=== PATIENT | female | born 1960 | race Hispanic/Latino ===

== ENCOUNTER 2017-01-27 07:12 | Day surgery (SDC) | payer OTHER ==
[2016-10-30 09:59] VITALS: BMI 20.1
--- NOTE | 2017-01-27 08:44 | CP.SDSHP ---
Same Day Surgery H & P - History Proposed Procedure: COLONSCOPY Pre-Op Diagnosis: SEE NOTES - Previous Medical/Surgical History Pulmonary: Other Neuro: Backaches, Other Misc: Other Pain: 6.Severe Pain Comments: PANC. / . - Allergies Allergies: Allergies Penicillins Allergy (Intermediate, Verified 10/30/16 09:59) SWELLING "THROAT CLOSES" Tetanus Vaccines and Toxoid Allergy (Intermediate, Verified 10/30/16 09:59) SWELLING THROAT CLOSES UP. - Physical Exam General Appearance: N Vital Signs: Vital Signs 01/27/17 08:17 Temperature 97.5 F L Pulse Rate 80 Respiratory 19 Rate Blood Pressure 134/65 O2 Sat by Pulse 97 Oximetry Mental Status: Alert & Oriented x3 Neuro: WNL Heart: WNL Lungs: WNL GI: Other - {Optional Preform as Required} Breast: WNL Abdomen: Other Rectal: Other Integument: WNL : WNL Ortho: Other ENT: WNL - Impression Pt. Evaluated Today:Candidate for Anesthesia & Procedure: Yes - Date & Time Time: 08:47 Short Stay Discharge - Short Stay Discharge Admitting Diagnosis/Reason for Visit: CHANGE IN BOWEL HABIT Disposition: HOME/ ROUTINE
[2017-01-27] MEDS ORDERED: Midazolam 2 MG/2 ML VIAL ONE (08:45)
[2017-01-27] MEDS ORDERED: Propofol 10 mg/ml Inj (20 ML) ONE ×2 (08:45→08:59)
[2017-01-27] MEDS ORDERED: Pantoprazole 40 mg EC Tab PO STA (08:48)
[2017-01-27] MEDS ORDERED: Belladonna-Phenobarbital PO STA (08:48)
[2017-01-27 09:36] VITALS: TEMP 97.7
[2017-01-27 09:48] VITALS: BP 116/63; PULSE 81; RESP 12; O2SAT 98
== END 2017-01-27 09:46 | disposition home or self-care (01) ==
LOC: C.ENDO 07:12
PROVIDERS: ATTEND Specialist
DX: K58.9 Irritable bowel syndrome, unspecified (principal); K64.4 Residual hemorrhoidal skin tags; K64.8 Other hemorrhoids
CPT/HCPCS: 45380; 88305; 88313; 88342; J2250; J2704

== ENCOUNTER 2017-10-07 07:13 | Day surgery (SDC) | payer MEDICAID, OTHER ==
[2016-10-30 09:59] VITALS: BMI 20.1
[2017-10-07] MEDS ORDERED: Bupivacaine HCl 0.25% PF (10 ml) Inj ONE (07:44)
[2017-10-07] MEDS ORDERED: MethylPREDNISolone Depo 40 mg/ml Inj ONE ×2 (07:44→10:39)
[2017-10-07] MEDS ORDERED: Lidocaine Hydrochloride 5 ML INJ ONE (07:44)
[2017-10-07] MEDS ORDERED: Lactated Ringer's 1,000 ML IV ONE (08:24)
[2017-10-07] MEDS ORDERED: Propofol 10 mg/ml Inj (20 ML) ONE (08:34)
[2017-10-07 09:03] VITALS: RESP 15
--- NOTE | 2017-10-07 10:42 | OP ---
PROCEDURE DATE: 10/07/17 PREOPERATIVE DIAGNOSES: Right and left knee pain, osteoarthritis. POSTOPERATIVE DIAGNOSES: Right and left knee pain, osteoarthritis. PROCEDURE: Right and left knee genicular nerve block, superomedial, superolateral and inferomedial branches. X-ray is fluoroscopy. TYPE OF ANESTHESIA: Local anesthesia and MAC sedation. ESTIMATED BLOOD LOSS: 1 mL. COMPLICATIONS: None. INDICATION: The patient with knee pain with osteoarthritis. She is having pain in bilateral knees adversely affecting quality of life and activities of daily living. The patient preferred pain management for treatment. TECHNIQUE: After comprehensive informed consent was obtained, the risks of the procedure explained and questions answered. The patient was placed in supine position on the operating room table in a comfortable position. Confirmation of the procedure to be performed was obtained from the patient. Monitors were applied. Skin overlying the area to be injected was confirmed and cleaned in a strict sterile fashion using chlorhexidine prep. The knee joint was identified in the AP view to medial and lateral femoral condyle, cortical lines were focused on. Sterile drape was placed around the area to be injected. The area to be injected was superficially anesthetized with 2 mL of 1% lidocaine using a 25-gauge 1.5-inch needle at each level noted above. A 22-gauze 3.5 inch spinal needle was advanced to the medial and lateral femoral condyle grooves as well as the medial tibial groove. AP and lateral views were taken and fluoroscopy confirmed needle placement. Total volume of 20 mL of 0.25% Marcaine with 40 mg Depo-Medrol was injected with intermittent aspiration. No heme or CSF was aspirated throughout. The patient tolerated the procedure well. Vital signs remained stable. Contralateral side was done on the same way. DISPOSITION: The patient was discharged home in stable condition. Instructed to follow up with doctor in 2 weeks. Adele Santillan MD
[2017-10-07 11:59] VITALS: BP 131/66; PULSE 78; TEMP 97.8; O2SAT 100
--- NOTE | 2017-10-07 15:31 | RAD ---
PROCEDURE: Intraoperative fluoroscopy HISTORY: BI-LAT KNEE OA COMPARISON: None available TECHNIQUE: Intraoperative fluoroscopy was provided for genicular nerve block bilaterally. Total time of fluoroscopy was 27.2 seconds. FINDINGS: Multiple fluoroscopic spot films of both the right and left knee are submitted. These films are on file for review. IMPRESSION: Fluoroscopy provided.
== END 2017-10-07 09:52 | disposition home or self-care (01) ==
LOC: C.SDS 07:13
PROVIDERS: ATTEND Anesthesiology Pain Medicine
DX: M17.0 Bilateral primary osteoarthritis of knee (principal)
CPT/HCPCS: 64450; J1030; J2704; J7120